=== PATIENT | female | born 1965 | race Caucasian/White ===

== ENCOUNTER → 2016-11-19 | Outpatient (REF) | payer OTHER | LOC: M SFHCPLAZ 10:52 | PROVIDERS: ATTEND Nurse Practitioner Family | DX: E03.9 Hypothyroidism, unspecified (principal); F41.9 Anxiety disorder, unspecified; Z13.220 Encounter for screening for lipoid disorders ==

== ENCOUNTER → 2017-01-11 | Outpatient (REF) | payer OTHER ==
[2017-01-11 20:15] LABS: BASO % 0.5 % (0.0-1.0); EOS # 0.2 K/mm3 (0.0-0.50); EOS % 3.7 % (0.0-3.0); LARGE UNSTAINED CELL # 0.1 K/mm3 (0.0-0.4); LARGE UNSTAINED CELL % 1.8 % (0.0-4.0); LYMPH # 1.4 K/mm3 (1.5-4.5); LYMPH % 25.7 % (24.0-44.0); MEAN CORPUSCULAR HEMOGLOBIN 32.1 pg (27.0-33.0); MEAN CORPUSCULAR HGB CONC 34.1 g/dl (32.0-36.5); MEAN CORPUSCULAR VOLUME 94.3 fl (80.0-96.0); MONO # 0.3 K/mm3 (0.0-0.8); MONO % 5.8 % (0.0-5.0); NEUTROPHILS # 3.1 K/mm3 (1.8-7.7); NEUTROPHILS % 62.5 % (36.0-66.0); PLATELET COUNT, AUTOMATED 184 k/mm3 (150-450); RED CELL DISTRIBUTION WIDTH 12.8 % (11.5-14.5); WHITE BLOOD COUNT 4.9 K/mm3 (4.0-10.0)
[2017-01-11 20:51] LABS: ALBUMIN 3.7 GM/DL (3.2-5.2); ALBUMIN/GLOBULIN RATIO 1.32 (1.00-1.93); ALKALINE PHOSPHATASE 69 U/L (45-117); ALT/SGPT 20 U/L (12-78); ANION GAP 6 MEQ/L (8-16); AST/SGOT 11 U/L (15-37); BILIRUBIN,TOTAL 0.5 MG/DL (0.2-1.0); BLOOD UREA NITROGEN 12 MG/DL (7-18); CALCIUM LEVEL 8.6 MG/DL (8.5-10.1); CARBON DIOXIDE LEVEL 27 MEQ/L (21-32); CHLORIDE LEVEL 109 MEQ/L (98-107); CHOLESTEROL LEVEL 187 MG/DL (<200); CREATININE FOR GFR 0.73 MG/DL (0.55-1.02); FREE T4 0.92 NG/DL (0.76-1.46); GLOMERULAR FILTRATION RATE > 60.0 (>58); GLUCOSE, FASTING 95 MG/DL (70-105); POTASSIUM SERUM 4.3 MEQ/L (3.5-5.1); SODIUM LEVEL 142 MEQ/L (136-145); TOTAL PROTEIN 6.5 GM/DL (6.4-8.2); TRIGLYCERIDES LEVEL 148 MG/DL (<150)
== END ==
LOC: M SFHCPLAZ 09:09
PROVIDERS: ATTEND Nurse Practitioner Family
DX: E03.9 Hypothyroidism, unspecified (principal); F41.9 Anxiety disorder, unspecified; Z13.220 Encounter for screening for lipoid disorders

== ENCOUNTER → 2017-03-19 | Outpatient (REF) | payer OTHER ==
[~2017-03-19] MED LIST: ACYC200C8 PO; ESCI20TA PO; IBUP80TA PO; LEVO50TA5 PO; MELO15TA4 PO
== END ==
LOC: M SFHCPLAZ 09:28
PROVIDERS: ATTEND Family Medicine
DX: Z12.4 Encounter for screening for malignant neoplasm of cervix (principal)

== ENCOUNTER → 2017-03-25 | Outpatient (CLI) | payer OTHER ==
--- NOTE | 2017-03-27 12:18 | REP ---
DIGITAL DIAGNOSTIC BILATERAL MAMMOGRAPHY WITH CAD AND FOCUSED RIGHT BREAST SONOGRAPHY: HISTORY: Right breast mass, right breast pain. The patient reports diffuse swelling and heaviness in the right breast and relates that her symptoms are similar to an episode of mastitis she had after a needle biopsy 3 years ago. Comparison mammograms have been retrieved from [facility] dated August 13, 2016, July 18, 2015, and July 04, 2014. MAMMOGRAPHIC FINDINGS: There is diffuse stromal thickening and diffuse skin thickening visible on the right breast today. Left breast is unchanged and somewhat nodular. No spiculation is seen on either side. No microcalcifications are observed. There is a needle biopsy marker clip at approximate 12-o'clock position in the right breast. Normal-appearing lymph nodes are seen bilaterally. SONOGRAPHIC FINDINGS: The retroareolar region of the right breast is scanned and the right breast scanned from 3 -o'clock position to 9-o'clock position. There is a cluster of cysts approximately 1.8 cm from the nipple and some dilated ducts are seen. No mass or acoustic shadowing is observed. No suspicious sonographic finding. IMPRESSION: Diffuse stromal thickening and diffuse skin thickening in the right breast as a change from prior mammography. Findings compatible with inflammatory mastitis. Inflammatory carcinoma could have this appearance as well. Follow-up imaging after antibiotic therapy is recommended. BIRADS category 0 incomplete breast imaging. Repeat diagnostic right breast mammography and ultrasound suggestive in 6-8 weeks after antibiotic therapy. BI-RADS/ACR category 0 mammogram, incomplete. Additional imaging and/or prior images are needed before a final assessment can be assigned. These findings were discussed by telephone on the day of the exam with the referring provider ARNOLDO Reyes. This mammogram was interpreted with the aid of an FDA-approved computer-aided detection system. The patient states she/he had a clinical breast exam in March 16, 2017 The patient letter being requested is M0. Signed by Raudel Rdz MD 03/27/2017 02:38 P
== END ==
LOC: M RAD 12:18
PROVIDERS: ATTEND Nurse Practitioner Family
DX: N63 Unspecified lump in breast (principal); N64.4 Mastodynia
CPT/HCPCS: 76642; G0204

== ENCOUNTER → 2017-04-17 | Outpatient (CLI) | payer OTHER ==
--- NOTE | 2017-04-17 17:23 | REP ---
DIAGNOSTIC MAMMOGRAM RIGHT BREAST WITH A RIGHT BREAST ULTRASOUND: Diagnostic mammogram right breast performed in the MLO and CC projections and compared to multiple prior exams, the most recent of which is 03/25/2017. That study showed diffuse stromal and skin thickening most consistent with inflammatory change. Current study shows that these findings have essentially resolved. The breast is similar in appearance to the prior study of 08/13/2016. Moderate fibroglandular tissue is unchanged in its pattern with no mass or clustered microcalcifications identified. Real-time sonographic evaluation of the right breast is performed and compared to prior study of 03/25/2017. Multiple dilated ducts are again seen in the retroareolar region. Some of these dilated ducts contain internal low level echoes. Septated cyst at 8-o'clock is again seen, 1.8 x 1.0 x 1.3 cm. IMPRESSION: ACR 2 benign. Resolution of previously noted inflammatory changes with no suspicious mass mammographically or sonographically. Recommend followup mammogram in one year. BI-RADS/ACR category 2 mammogram. Benign finding(s). Routine annual screening mammography (for women over age 40). This mammogram was interpreted with the aid of an FDA-approved computer-aided detection system. The patient states she/he had a clinical breast exam in February 2017. The patient letter being requested is M2. Signed by Mao Montelongo MD 04/17/2017 05:45 P
== END ==
LOC: M RAD 13:09
PROVIDERS: ATTEND Nurse Practitioner Family
DX: N61.0 Mastitis without abscess (principal); R92.8 Other abnormal and inconclusive findings on diagnostic imaging of breast
CPT/HCPCS: 76642; G0206

== ENCOUNTER 2017-05-20 12:38 | Day surgery (SDC) | payer OTHER ==
[~2017-05-20] VITALS: Ht 162.6 cm; Wt 92.1 kg
[2017-05-20] MEDS ORDERED: NS 1,000 ML IV ONE (13:30)
[2017-05-20] MEDS ORDERED: LIDOCAINE 2% INJ 100 MG/5 ML SDV (FOR ANES.) As Ordered ONE (14:00)
[2017-05-20] MEDS ORDERED: PROPOFOL 200 MG/20 ML VIAL As Ordered ONE ×3 (14:00→15:27)
--- NOTE | 2017-05-20 15:37 | ROOR ---
Patient Name: Melissa Barajas Procedure Date: 05/20/2017 3:00 PM Date of : 1965 Age: 52 Room: [facility] Gender: Female Note Status: Finalized Procedure: Colonoscopy Indications: Screening for colorectal malignant neoplasm Providers: Joe Velazquez MD Referring MD: Irene Elizabeth NP Requesting Provider: Medicines: Monitored Anesthesia Care Complications: No immediate complications. Procedure: Pre-Anesthesia Assessment: - Prior to the procedure, a History and Physical was performed, and patient medications and allergies were reviewed. The patient is competent. The risks and benefits of the procedure and the sedation options and risks were discussed with the patient. All questions were answered and informed consent was obtained. Patient identification and proposed procedure were verified by the physician, the nurse and the advertising copy writer in the procedure room. Mental Status Examination: alert and oriented. Airway Examination: normal oropharyngeal airway and neck mobility. Respiratory Examination: clear to auscultation. CV Examination: normal. Prophylactic Antibiotics: The patient does not require prophylactic antibiotics. Prior Anticoagulants: The patient has taken no previous anticoagulant or antiplatelet agents. ASA Grade Assessment: II - A patient with mild systemic disease. After reviewing the risks and benefits, the patient was deemed in satisfactory condition to undergo the procedure. The anesthesia plan was to use monitored anesthesia care (MAC). Immediately prior to administration of medications, the patient was re-assessed for adequacy to receive sedatives. The heart rate, respiratory rate, oxygen saturations, blood pressure, adequacy of pulmonary ventilation, and response to care were monitored throughout the procedure. The physical status of the patient was re-assessed after the procedure. The Colonoscope was introduced through the anus and advanced to the terminal ileum, with identification of the appendiceal orifice and IC valve. The colonoscopy was performed without difficulty. The patient tolerated the procedure well. The quality of the bowel preparation was good. The terminal ileum, ileocecal valve, appendiceal orifice, and rectum were photographed. The quality of the bowel preparation was good. The terminal ileum, ileocecal valve, appendiceal orifice, and rectum were photographed. Scope insertion time was 3 minutes. Scope withdrawal time was 10 minutes. Findings: The perianal and digital rectal examinations were normal. The terminal ileum appeared normal. A few sessile polyps were found in the recto-sigmoid colon. The polyps were 2 to 3 mm in size. These polyps were removed with a cold biopsy forceps. Resection and retrieval were complete. Verification of patient identification for the specimen was done by the physician and nurse using the patient's name, date and medical record number. Estimated blood loss was minimal. The retroflexed view of the distal rectum and anal verge was normal and showed no anal or rectal abnormalities. Impression: - The examined portion of the ileum was normal. - A few 2 to 3 mm polyps at the recto-sigmoid colon, removed with a cold biopsy forceps. Resected and retrieved. Recommendation: - Patient has a contact number available for emergencies. The signs and symptoms of potential delayed complications were discussed with the patient. Return to normal activities tomorrow. Written discharge instructions were provided to the patient. - Resume previous diet. - Continue present medications. - Await pathology results. - Repeat colonoscopy in 5-10 years for surveillance based on pathology results. - Telephone GI clinic for pathology results in 1 week. - Return to GI clinic in 5 years. - Return to primary care physician. Joe Velazquez MD Joe Velazquez MD 05/20/2017 3:36:53 PM This report has been signed electronically. Number of Addenda: 0 Note Initiated On: 05/20/2017 3:00 PM Estimated Blood Loss: Estimated blood loss was minimal.
[2017-05-20 16:00] VITALS: BP 140/84
== END 2017-05-20 16:41 | disposition home or self-care (01) ==
LOC: M OPP 12:38 → EDSTATUS 13:45 → M OPP 16:41
PROVIDERS: ATTEND Internal Medicine Gastroenterology
DX: Z12.11 Encounter for screening for malignant neoplasm of colon (principal); Z63.5 Disruption of family by separation and divorce; E05.90 Thyrotoxicosis, unspecified without thyrotoxic crisis or storm; F32.9 Major depressive disorder, single episode, unspecified; F41.9 Anxiety disorder, unspecified; Z79.899 Other long term (current) drug therapy

== ENCOUNTER → 2017-10-24 | Outpatient (CLI) | payer OTHER, MEDICAID, SELFPAY | LOC: M RAD 09:37 | DX: Z12.31 Encounter for screening mammogram for malignant neoplasm of breast (principal); Z79.3 Long term (current) use of hormonal contraceptives | CPT/HCPCS: 77067 ==

== ENCOUNTER → 2017-10-24 | Outpatient (REF) | payer OTHER ==
[2017-10-24 12:09] LABS: BASO % 0.5 % (0.0-1.0); EOS # 0.1 10^3/uL (0.0-0.50); EOS % 2.2 % (0.0-3.0); HEMATOCRIT 44.4 % (36.0-47.0); HEMOGLOBIN 14.8 g/dl (12.0-15.5); IMMATURE GRANULOCYTE % 0.5 % (0-3.0); LYMPH # 1.5 10^3/uL (1.5-4.5); LYMPH % 23.5 % (24.0-44.0); MEAN CORPUSCULAR HEMOGLOBIN 30.6 pg (27.0-33.0); MEAN CORPUSCULAR HGB CONC 33.3 g/dl (32.0-36.5); MEAN CORPUSCULAR VOLUME 91.7 fl (80.0-96.0); MONO # 0.6 10^3/uL (0.0-0.8); MONO % 9.2 % (0.0-5.0); NEUTROPHILS # 4.1 10^3/uL (1.8-7.7); NEUTROPHILS % 64.1 % (36.0-66.0); PLATELET COUNT, AUTOMATED 208 10^3/uL (150-450); RED BLOOD COUNT 4.84 10^6/uL (4.00-5.40); RED CELL DISTRIBUTION WIDTH 12.8 % (11.5-14.5); WHITE BLOOD COUNT 6.4 10^3/uL (4.0-10.0)
[2017-10-24 12:38] LABS: ALBUMIN 3.8 GM/DL (3.2-5.2); ALBUMIN/GLOBULIN RATIO 1.23 (1.00-1.93); ALKALINE PHOSPHATASE 77 U/L (45-117); ALT/SGPT 18 U/L (12-78); ANION GAP 6 MEQ/L (8-16); AST/SGOT 9 U/L (7-37); BILIRUBIN,TOTAL 0.5 MG/DL (0.2-1.0); BLOOD UREA NITROGEN 17 MG/DL (7-18); CALCIUM LEVEL 8.7 MG/DL (8.5-10.1); CARBON DIOXIDE LEVEL 27 MEQ/L (21-32); CHLORIDE LEVEL 110 MEQ/L (98-107); CHOLESTEROL LEVEL 169 MG/DL (<200); CHOLESTEROL RISK RATIO 4.225 (<5); CREATININE FOR GFR 0.73 MG/DL (0.55-1.30); FREE T4 1.04 NG/DL (0.76-1.46); GLOMERULAR FILTRATION RATE > 60.0 (>51); GLUCOSE, FASTING 93 MG/DL (70-100); HDL CHOLESTEROL 40 MG/DL (>40); LDL CHOLESTEROL 104.8 MG/DL (<100); NON-HDL-C 129 MG/DL; POTASSIUM SERUM 4.3 MEQ/L (3.5-5.1); SODIUM LEVEL 143 MEQ/L (136-145); TOTAL PROTEIN 6.9 GM/DL (6.4-8.2); TRIGLYCERIDES LEVEL 121 MG/DL (<150)
== END ==
LOC: M SFHCLERA 08:53
DX: E03.9 Hypothyroidism, unspecified (principal); F41.9 Anxiety disorder, unspecified; Z13.220 Encounter for screening for lipoid disorders

== ENCOUNTER → 2018-05-06 | Outpatient (REF) | payer OTHER ==
[2018-05-06 12:12] LABS: FREE T4 1.05 NG/DL (0.76-1.46)
== END ==
LOC: M SFHCPLAZ 07:39
DX: E03.9 Hypothyroidism, unspecified (principal)
CPT/HCPCS: 84443

== ENCOUNTER → 2018-05-27 | Outpatient (CLI) | payer OTHER | LOC: M RAD 12:43 | DX: Z12.31 Encounter for screening mammogram for malignant neoplasm of breast (principal) | CPT/HCPCS: 77065 ==

== ENCOUNTER → 2019-02-12 | Outpatient (CLI) | payer MEDICAID, OTHER ==
[~2019-02-12] MED LIST changes: +MELO15TA28 PO; -MELO15TA4 PO
[2019-02-12 12:22] LABS: HEMATOCRIT 43.6 % (36.0-47.0); HEMOGLOBIN 14.2 g/dl (12.0-15.5); MEAN CORPUSCULAR HEMOGLOBIN 30.3 pg (27.0-33.0); MEAN CORPUSCULAR HGB CONC 32.6 g/dl (32.0-36.5); PLATELET COUNT, AUTOMATED 201 10^3/uL (150-450); RED BLOOD COUNT 4.69 10^6/uL (4.00-5.40); WHITE BLOOD COUNT 7.8 10^3/uL (4.0-10.0)
[2019-02-12 13:35] LABS: ALT/SGPT 21 U/L (12-78); BILIRUBIN,TOTAL 0.6 MG/DL (0.2-1.0); BLOOD UREA NITROGEN 17 MG/DL (7-18); CALCIUM LEVEL 9.5 MG/DL (8.5-10.1); CARBON DIOXIDE LEVEL 28 MEQ/L (21-32); CHLORIDE LEVEL 108 MEQ/L (98-107); CHOLESTEROL LEVEL 173 MG/DL (<200); CHOLESTEROL RISK RATIO 3.604 (<5); CREATININE FOR GFR 0.79 MG/DL (0.55-1.30); FREE T4 1.27 NG/DL (0.76-1.46); GLOMERULAR FILTRATION RATE > 60.0 (>51); GLUCOSE, FASTING 86 MG/DL (70-100); HDL CHOLESTEROL 48 MG/DL (>40); LDL CHOLESTEROL 97 MG/DL (<100); NON-HDL-C 125 MG/DL; POTASSIUM SERUM 4.3 MEQ/L (3.5-5.1); SODIUM LEVEL 144 MEQ/L (136-145); TOTAL PROTEIN 6.9 GM/DL (6.4-8.2); TRIGLYCERIDES LEVEL 138 MG/DL (<150)
--- NOTE | 2019-02-12 14:02 | REPMRS ---
Patient History The patient states she had a clinical breast exam in October 2018. Family history of prostate cancer at age 60 in father, prostate cancer at age 40 in brother, prostate cancer at age 40 in brother. Took hormonal contraceptives for 5 years. Digital Mammo Screening Bilat: February 12, 2019 - Exam #: [id number] Bilateral CC and MLO view(s) were taken. Technologist: Elizabeth Bianchi, Technologist Prior study comparison: May 27, 2018, left breast digital mammo diagnostic unilateral performed at [facility]. October 24, 2017, bilateral digital mammo screening bilat performed at [facility]. March 25, 2017, digital mammo diagnostic bilateral performed at [facility]. FINDINGS: There are scattered fibroglandular densities. There is a needle biopsy marker clip noted in the right breast subareolar zone. The stromal thickening observed in the right breast in 2017 has resolved. There has been no change in the appearance of the mammogram from the prior studies. There is a mild amount of scattered fibroglandular density which is fairly symmetric. There is no interval development of dominant mass, architectural distortion, or grouped microcalcification suggestive of malignancy. 3-D tomosynthesis shows no additional findings. Assessment: BI-RADS/ACR category 2 mammogram. Benign Findings. Recommendation Routine screening mammogram of both breasts in 1 year (for women over age 40). This patient's Lifetime Breast Cancer Risk is estimated at 12.0 %. This mammogram was interpreted with the aid of an FDA-approved computer-aided dectection system. Electronically Signed By: Kamaljit Rdz MD 02/12/19 [id number]
--- NOTE | 2019-02-25 11:42 | REP ---
Lumbar spine five views: There are no comparisons. Vertebral body heights, interspacing alignment are normal. There is no spondylolysis. There is no spondylolisthesis. There is mild facet osteoarthritis at the lower lumbar levels. The facets are otherwise unremarkable. The pedicles and sacroiliac articulations are. Impression: Mild facet osteoarthritis of the lower lumbar levels. Electronically Signed by Mao Hanks MD 02/12/2019 01:02 P
== END ==
LOC: M RAD 11:16
PROVIDERS: ATTEND Physician Assistant
DX: E03.9 Hypothyroidism, unspecified (principal); Z13.220 Encounter for screening for lipoid disorders; M54.5 Low back pain; Z12.31 Encounter for screening mammogram for malignant neoplasm of breast; Z92.0 Personal history of contraception

== ENCOUNTER → 2019-07-06 | Outpatient (REF) | payer MEDICAID ==
[2019-07-06 12:13] LABS: HEMATOCRIT 45.7 % (36.0-47.0); HEMOGLOBIN 14.5 g/dl (12.0-15.5); MEAN CORPUSCULAR HEMOGLOBIN 29.8 pg (27.0-33.0); MEAN CORPUSCULAR HGB CONC 31.7 g/dl (32.0-36.5); MEAN CORPUSCULAR VOLUME 93.8 fl (80.0-96.0); PLATELET COUNT, AUTOMATED 175 10^3/uL (150-450); RED BLOOD COUNT 4.87 10^6/uL (4.00-5.40); WHITE BLOOD COUNT 5.9 10^3/uL (4.0-10.0)
[2019-07-06 12:40] LABS: ALBUMIN 3.5 GM/DL (3.2-5.2); ALT/SGPT 21 U/L (12-78); BILIRUBIN,TOTAL 0.6 MG/DL (0.2-1.0); BLOOD UREA NITROGEN 15 MG/DL (7-18); CALCIUM LEVEL 8.7 MG/DL (8.5-10.1); CARBON DIOXIDE LEVEL 27 MEQ/L (21-32); CHLORIDE LEVEL 107 MEQ/L (98-107); CHOLESTEROL LEVEL 175 MG/DL (<200); CHOLESTEROL RISK RATIO 4.487 (<5); CREATININE FOR GFR 0.82 MG/DL (0.55-1.30); FREE T4 1.05 NG/DL (0.76-1.46); GLOMERULAR FILTRATION RATE > 60.0 (>51); GLUCOSE, FASTING 91 MG/DL (70-100); HDL CHOLESTEROL 39 MG/DL (>40); LDL CHOLESTEROL 107 MG/DL (<100); NON-HDL-C 136 MG/DL; SODIUM LEVEL 141 MEQ/L (136-145); TOTAL PROTEIN 6.4 GM/DL (6.4-8.2); TRIGLYCERIDES LEVEL 147 MG/DL (<150)
[2019-07-07 08:47] LABS: RPR Non Reactive (Non Reactive)
== END ==
LOC: M SFHCPLAZ 08:14
PROVIDERS: ATTEND Physician Assistant Medical
DX: E03.9 Hypothyroidism, unspecified (principal); Z13.220 Encounter for screening for lipoid disorders

== ENCOUNTER → 2021-01-08 | Outpatient (REF) | payer OTHER ==
[~2021-01-08] MED LIST changes: -ESCI20TA PO; +ESCI20TA16 PO
[2021-01-08 15:20] LABS: BASO # 0.1 10^3/uL (0.0-0.2); BASO % 0.7 % (0.0-1.0); EOS # 0.2 10^3/uL (0.0-0.5); EOS % 2.2 % (0.0-3.0); HEMOGLOBIN 12.9 g/dl (12.0-15.5); LYMPH # 1.8 10^3/uL (1.5-5.0); LYMPH % 24.9 % (24.0-44.0); MEAN CORPUSCULAR HEMOGLOBIN 27.4 pg (27.0-33.0); MEAN CORPUSCULAR HGB CONC 31.5 g/dl (32.0-36.5); MONO # 0.8 10^3/uL (0.0-0.8); MONO % 10.3 % (2.0-8.0); NEUTROPHILS # 4.5 10^3/uL (1.5-8.5); NEUTROPHILS % 61.6 % (36.0-66.0); PLATELET COUNT, AUTOMATED 218 10^3/uL (150-450); RED BLOOD COUNT 4.71 10^6/uL (4.00-5.40); WHITE BLOOD COUNT 7.3 10^3/uL (4.0-10.0)
[2021-01-08 15:42] LABS: HEMOGLOBIN A1c 5.3 %
[2021-01-08 15:54] LABS: ALBUMIN 3.6 GM/DL (3.2-5.2); ALT/SGPT 19 U/L (12-78); BILIRUBIN,TOTAL 0.5 MG/DL (0.2-1.0); BLOOD UREA NITROGEN 14 MG/DL (7-18); CALCIUM LEVEL 8.9 MG/DL (8.5-10.1); CARBON DIOXIDE LEVEL 28 MEQ/L (21-32); CHLORIDE LEVEL 107 MEQ/L (98-107); CHOLESTEROL LEVEL 173 MG/DL (<200); CHOLESTEROL RISK RATIO 3.604 (<5); CREATININE FOR GFR 0.68 MG/DL (0.55-1.30); FREE T4 1.07 NG/DL (0.76-1.46); GLOMERULAR FILTRATION RATE > 60.0 (>51); GLUCOSE, FASTING 92 MG/DL (70-100); HDL CHOLESTEROL 48 MG/DL (>40); LDL CHOLESTEROL 98 MG/DL (<100); NON-HDL-C 125 MG/DL; POTASSIUM SERUM 4.4 MEQ/L (3.5-5.1); SODIUM LEVEL 140 MEQ/L (136-145); TOTAL PROTEIN 6.4 GM/DL (6.4-8.2); TRIGLYCERIDES LEVEL 133 MG/DL (<150)
== END ==
LOC: M PLALAB 12:30
PROVIDERS: ATTEND Physician Assistant Medical
DX: Z00.00 Encounter for general adult medical examination without abnormal findings (principal); E03.9 Hypothyroidism, unspecified; Z68.35 Body mass index [BMI] 35.0-35.9, adult

== ENCOUNTER → 2021-08-06 | Outpatient (REF) | payer OTHER ==
[2021-08-06 17:37] LABS: BASO % 0.4 % (0.0-1.0); EOS # 0.1 10^3/uL (0.0-0.5); EOS % 1.8 % (0.0-3.0); HEMOGLOBIN 14.4 g/dl (12.0-15.5); LYMPH # 1.5 10^3/uL (1.5-5.0); LYMPH % 26.5 % (24.0-44.0); MEAN CORPUSCULAR HEMOGLOBIN 28.3 pg (27.0-33.0); MEAN CORPUSCULAR VOLUME 88.6 fl (80.0-96.0); MONO # 0.5 10^3/uL (0.0-0.8); MONO % 9.5 % (2.0-8.0); NEUTROPHILS # 3.5 10^3/uL (1.5-8.5); NEUTROPHILS % 61.6 % (36.0-66.0); PLATELET COUNT, AUTOMATED 207 10^3/uL (150-450); RED BLOOD COUNT 5.08 10^6/uL (4.00-5.40); WHITE BLOOD COUNT 5.7 10^3/uL (4.0-10.0)
[2021-08-06 17:53] LABS: ALBUMIN 3.7 GM/DL (3.2-5.2); ALT/SGPT 20 U/L (12-78); BILIRUBIN,TOTAL 0.4 MG/DL (0.2-1.0); BLOOD UREA NITROGEN 18 MG/DL (7-18); CALCIUM LEVEL 8.8 MG/DL (8.5-10.1); CARBON DIOXIDE LEVEL 29 MEQ/L (21-32); CHLORIDE LEVEL 108 MEQ/L (98-107); CREATININE FOR GFR 0.88 MG/DL (0.55-1.30); FREE T4 1.28 NG/DL (0.76-1.46); GLOMERULAR FILTRATION RATE > 60.0 (>51); GLUCOSE, FASTING 92 MG/DL (70-100); HEMOGLOBIN A1c 5.1 %; POTASSIUM SERUM 4.5 MEQ/L (3.5-5.1); SODIUM LEVEL 142 MEQ/L (136-145); TOTAL PROTEIN 6.9 GM/DL (6.4-8.2)
== END ==
LOC: M SFHCPLAZ 17:26
PROVIDERS: ATTEND Physician Assistant Medical
DX: I10 Essential (primary) hypertension (principal); Z68.35 Body mass index [BMI] 35.0-35.9, adult; E03.9 Hypothyroidism, unspecified

== ENCOUNTER → 2021-08-09 | Outpatient (CLI) | payer OTHER | LOC: M RAD 08-06 16:32 | PROVIDERS: ATTEND Physician Assistant | DX: N93.9 Abnormal uterine and vaginal bleeding, unspecified (principal) ==

== ENCOUNTER → 2021-09-25 | Outpatient (CLI) | payer OTHER | LOC: M WHC 14:02 | PROVIDERS: ATTEND Physician Assistant Medical | DX: Z12.31 Encounter for screening mammogram for malignant neoplasm of breast (principal) ==

== ENCOUNTER → 2021-10-10 | Outpatient (CLI) | payer OTHER | LOC: M WHC 14:00 | PROVIDERS: ATTEND Physician Assistant Medical | DX: R92.8 Other abnormal and inconclusive findings on diagnostic imaging of breast (principal) | CPT/HCPCS: 77065; G0279 ==

== ENCOUNTER → 2021-10-23 | Outpatient (CLI) | payer OTHER | LOC: M WHC 13:02 | PROVIDERS: ATTEND Physician Assistant | DX: N83.202 Unspecified ovarian cyst, left side (principal); D25.1 Intramural leiomyoma of uterus ==

== ENCOUNTER → 2021-12-12 | Outpatient (CLI) | payer OTHER ==
[2021-12-12 11:10] LABS: BASO % 0.3 % (0.0-1.0); EOS # 0.1 10^3/uL (0.0-0.5); EOS % 1.6 % (0.0-3.0); HEMOGLOBIN 14.7 g/dl (12.0-15.5); LYMPH # 1.5 10^3/uL (1.5-5.0); LYMPH % 22.4 % (24.0-44.0); MEAN CORPUSCULAR HEMOGLOBIN 30.6 pg (27.0-33.0); MEAN CORPUSCULAR HGB CONC 32.7 g/dl (32.0-36.5); MEAN CORPUSCULAR VOLUME 93.6 fl (80.0-96.0); MONO # 0.6 10^3/uL (0.0-0.8); MONO % 9.2 % (2.0-8.0); NEUTROPHILS # 4.5 10^3/uL (1.5-8.5); NEUTROPHILS % 66.2 % (36.0-66.0); PLATELET COUNT, AUTOMATED 206 10^3/uL (150-450); RED BLOOD COUNT 4.81 10^6/uL (4.00-5.40); WHITE BLOOD COUNT 6.8 10^3/uL (4.0-10.0)
[2021-12-12 11:22] LABS: INR 0.9; PROTHROMBIN TIME 12.5 SECONDS (12.7-14.5)
[2021-12-12 11:23] LABS: PARTIAL THROMBOPLASTIN TIME 26.9 SECONDS (25.9-37.0)
[2021-12-12 11:42] LABS: FOLLICLE STIMULATING HORMONE 1.6 mIU/mL; FREE T4 1.22 NG/DL (0.76-1.46); LUTEINIZING HORMONE 0.5 mIU/mL; THYROID STIMULATING HORMONE 1.57 uIU/ML (0.358-3.740)
== END ==
LOC: M PLALAB 10:12
PROVIDERS: ATTEND Physician Assistant Medical
DX: N92.0 Excessive and frequent menstruation with regular cycle (principal)

== ENCOUNTER → 2022-03-04 | Outpatient (CLI) | payer OTHER ==
[~2022-03-04] MED LIST changes: +APRITAB PO; +BCP PO; +CARV6.25 PO; +LEXA1TAB2 PO; +MIRE1IUD IU; +SYNT100T PO
== END ==
LOC: M LABSMTC 11:27
PROVIDERS: ATTEND Anesthesiology
DX: Z01.818 Encounter for other preprocedural examination (principal); Z11.52 Encounter for screening for COVID-19

== ENCOUNTER 2022-03-06 06:53 | Day surgery (SDC) | payer OTHER ==
[~2022-03-06] VITALS: Ht 162.6 cm; Wt 96.6 kg
[2022-03-06] MEDS ORDERED: LR 1,000 ML IV SCH ×3 (07:15→08:20)
[2022-03-06] MEDS ORDERED: propofoL 200 MG/20 ML VIAL As Ordered ONE (07:47)
[2022-03-06] MEDS ORDERED: KETOROLAC 60MG 2ML VIAL As Ordered ONE (07:47)
[2022-03-06] MEDS ORDERED: ONDANSETRON 4MG 2ML VIAL As Ordered ONE (07:47)
[2022-03-06] MEDS ORDERED: LIDOCAINE 2% 100MG/5ML SDV (FOR ANES.) As Ordered ONE (07:47)
[2022-03-06] MEDS ORDERED: dexameTHASONE 4 MG/ML 1ML VIAL (J1100 PER 1MG) As Ordered ONE (07:47)
[2022-03-06] MEDS ORDERED: MIDAZOLAM INJ 2MG/2ML VIAL (J2250 PER 1MG) As Ordered ONE (07:50)
[2022-03-06] MEDS ORDERED: fentaNYL 100 MCG/2 ML INJECTION As Ordered ONE (07:50)
[2022-03-06 08:07] LABS: HEMATOCRIT 42.3 % (36.0-47.0); HEMOGLOBIN 13.6 g/dl (12.0-15.5); MEAN CORPUSCULAR HGB CONC 32.2 g/dl (32.0-36.5); MEAN CORPUSCULAR VOLUME 93.2 fl (80.0-96.0); PLATELET COUNT, AUTOMATED 222 10^3/uL (150-450); RED BLOOD COUNT 4.54 10^6/uL (4.00-5.40); WHITE BLOOD COUNT 6.3 10^3/uL (4.0-10.0)
[2022-03-06] MEDS ORDERED: oxyCODONE 5MG TAB PO PRN (08:20)
[2022-03-06] MEDS ORDERED: METOCLOPRAMIDE INJ 10MG/2ML VIAL (J2765 PER 1) IV PRN (08:20)
[2022-03-06] MEDS ORDERED: ONDANSETRON 4MG 2ML VIAL IV PRN (08:20)
[2022-03-06] MEDS ORDERED: fentaNYL 100 MCG/2 ML INJECTION IV PRN (08:20)
[2022-03-06 08:23] LABS: BLOOD UREA NITROGEN 14 MG/DL (7-18); CALCIUM LEVEL 8.5 MG/DL (8.5-10.1); CARBON DIOXIDE LEVEL 27 MEQ/L (21-32); CHLORIDE LEVEL 109 MEQ/L (98-107); CREATININE FOR GFR 0.84 MG/DL (0.55-1.30); GLOMERULAR FILTRATION RATE > 60.0 (>51); GLUCOSE, FASTING 100 MG/DL (70-100); POTASSIUM SERUM 4.2 MEQ/L (3.5-5.1); SODIUM LEVEL 141 MEQ/L (136-145)
[2022-03-06 10:41] VITALS: BP 172/81
== END 2022-03-06 10:45 | disposition home or self-care (01) ==
LOC: M SDC 06:53
PROVIDERS: ATTEND Obstetrics & Gynecology
DX: N84.0 Polyp of corpus uteri (principal); I10 Essential (primary) hypertension; E07.9 Disorder of thyroid, unspecified
CPT/HCPCS: 36415; 58563; 80048; 81025; 85027; 86850; 86900; 86901; 88305; 93005; J1100; J1885; J2250; J2405; J3010

== ENCOUNTER → 2022-10-04 | Outpatient (CLI) | payer OTHER | LOC: M WHC 07:37 | PROVIDERS: ATTEND Physician Assistant | DX: Z12.31 Encounter for screening mammogram for malignant neoplasm of breast (principal) ==

== ENCOUNTER → 2022-10-04 | Outpatient (CLI) | payer OTHER ==
[2022-10-04 13:36] LABS: BASO % 0.7 % (0.0-1.0); EOS # 0.1 10^3/uL (0.0-0.5); EOS % 2.3 % (0.0-3.0); HEMATOCRIT 43.1 % (36.0-47.0); HEMOGLOBIN 13.1 g/dl (12.0-15.5); LYMPH # 1.2 10^3/uL (1.5-5.0); MEAN CORPUSCULAR HEMOGLOBIN 26.7 pg (27.0-33.0); MEAN CORPUSCULAR HGB CONC 30.4 g/dl (32.0-36.5); MONO # 0.6 10^3/uL (0.0-0.8); NEUTROPHILS # 3.6 10^3/uL (1.5-8.5); NEUTROPHILS % 64.6 % (36.0-66.0); PLATELET COUNT, AUTOMATED 191 10^3/uL (150-450); WHITE BLOOD COUNT 5.6 10^3/uL (4.0-10.0)
[2022-10-04 14:09] LABS: FREE T4 0.94 NG/DL (0.89-1.76)
[2022-10-04 14:10] LABS: ALBUMIN 3.7 G/DL (3.2-5.2); ALKALINE PHOSPHATASE 62 U/L (46-116); ALT/SGPT 15 U/L (7.0-40); AST/SGOT 13 U/L (<34); BILIRUBIN,TOTAL 0.5 MG/DL (0.3-1.2); BLOOD UREA NITROGEN 18 MG/DL (9-23); CALCIUM LEVEL 8.8 MG/DL (8.5-10.1); CARBON DIOXIDE LEVEL 29 MMOL/L (20-31); CHLORIDE LEVEL 107 MMOL/L (98-107); CHOLESTEROL LEVEL 160 MG/DL (<200); CREATININE FOR GFR 0.72 MG/DL (0.55-1.30); GLOMERULAR FILTRATION RATE > 60.0 (>51); GLUCOSE, FASTING 93 MG/DL (60-100); LDL CHOLESTEROL 86.6 MG/DL (<100); POTASSIUM SERUM 4.6 MMOL/L (3.5-5.1); SODIUM LEVEL 141 MMOL/L (136-145); THYROID STIMULATING HORMONE 3.398 uIU/ML (0.55-4.78); TOTAL PROTEIN 6.2 G/DL (5.7-8.2); TRIGLYCERIDES LEVEL 92 MG/DL (<150)
== END ==
LOC: M PLALAB 08:26
PROVIDERS: ATTEND Physician Assistant
DX: I10 Essential (primary) hypertension (principal)

== ENCOUNTER → 2023-01-24 | Outpatient (CLI) | payer OTHER | LOC: M PLAIMG 12:03 | PROVIDERS: ATTEND Physician Assistant | DX: M79.674 Pain in right toe(s) (principal) ==

== ENCOUNTER → 2023-10-27 | Outpatient (CLI) | payer OTHER ==
[2023-10-27 13:22] LABS: BASO % 0.4 % (0.0-1.0); EOS # 0.1 10^3/uL (0.0-0.5); EOS % 1.7 % (0.0-3.0); HEMATOCRIT 44.7 % (36.0-47.0); LYMPH # 1.1 10^3/uL (1.5-5.0); MEAN CORPUSCULAR HEMOGLOBIN 26.8 pg (27.0-33.0); MEAN CORPUSCULAR HGB CONC 31.3 g/dl (32.0-36.5); MEAN CORPUSCULAR VOLUME 85.6 fl (80.0-96.0); MONO # 0.5 10^3/uL (0.0-0.8); MONO % 9.2 % (2.0-8.0); NEUTROPHILS # 3.5 10^3/uL (1.5-8.5); NEUTROPHILS % 67.5 % (36.0-66.0); PLATELET COUNT, AUTOMATED 226 10^3/uL (150-450); RED BLOOD COUNT 5.22 10^6/uL (4.00-5.40); WHITE BLOOD COUNT 5.2 10^3/uL (4.0-10.0)
[2023-10-27 13:29] LABS: THYROID STIMULATING HORMONE 0.577 uIU/ML (0.55-4.78); TOTAL 25(OH) VITAMIN D 51.6 NG/ML (20.0-100.0)
[2023-10-27 13:31] LABS: FREE T4 1.35 NG/DL (0.89-1.76)
[2023-10-27 13:32] LABS: TOTAL IRON BINDING CAPACITY 379 UG/DL (250-425)
[2023-10-27 13:33] LABS: ALBUMIN 3.9 G/DL (3.2-5.2); ALKALINE PHOSPHATASE 64 U/L (46-116); ALT/SGPT 18 U/L (7.0-40); AST/SGOT 19 U/L (<34); BILIRUBIN,TOTAL 0.5 MG/DL (0.3-1.2); BLOOD UREA NITROGEN 17 MG/DL (9-23); CALCIUM LEVEL 9.8 MG/DL (8.5-10.1); CARBON DIOXIDE LEVEL 30 MMOL/L (20-31); CHLORIDE LEVEL 105 MMOL/L (98-107); CHOLESTEROL LEVEL 150 MG/DL (<200); CHOLESTEROL RISK RATIO 3.06 (<5); CREATININE FOR GFR 0.79 MG/DL (0.55-1.30); GLOMERULAR FILTRATION RATE > 60.0 (>51); GLUCOSE, FASTING 90 MG/DL (60-100); IRON (FE) 58 UG/DL (50-170); PERCENT SATURATION 15.3 % (13.2-45.0); POTASSIUM SERUM 4.4 MMOL/L (3.5-5.1); SODIUM LEVEL 141 MMOL/L (136-145); TOTAL PROTEIN 6.6 G/DL (5.7-8.2); TRIGLYCERIDES LEVEL 100 MG/DL (<150)
[2023-10-27 13:41] LABS: HEMOGLOBIN A1c 5.5 % (4.0-6.0)
== END ==
LOC: M PLALAB 10:46
PROVIDERS: ATTEND Physician Assistant
DX: I10 Essential (primary) hypertension (principal); E03.9 Hypothyroidism, unspecified; E66.09 Other obesity due to excess calories; N93.9 Abnormal uterine and vaginal bleeding, unspecified

== ENCOUNTER → 2023-10-27 | Outpatient (CLI) | payer OTHER | LOC: M WHC 10:41 | PROVIDERS: ATTEND Physician Assistant | DX: Z12.31 Encounter for screening mammogram for malignant neoplasm of breast (principal) ==

== ENCOUNTER 2023-11-14 15:05 | Outpatient (CLI) | payer OTHER ==
[~2023-11-14 15:05] MED LIST changes: +ALBUTEROL SULFATE 2.5MG/0.5ML INH NEB SOLN INH PRN; +EPINEPHrine INJ 1 MG/ML 1ML AMP IM PRN; +diphenhydrAMINE 50MG/ML VIAL IV PRN; +methylPREDNISolone 125MG 2ML VIAL IV PRN
[2023-11-14] MEDS: IRON SUCROSE 300 MG in NS 250 ML OVER 90 MIN. IV ONE (15:20)
[2023-11-14] MEDS ORDERED: NS 1,000 ML IV SCH (15:30)
[2023-11-14 15:34] VITALS: BP 156/86; O2SAT 98
[2023-11-14 17:23] VITALS: BP 132/68; O2SAT 99
== END 2023-11-14 17:30 | disposition home or self-care (01) ==
LOC: M INFU 15:05
PROVIDERS: ATTEND Physician Assistant
DX: E61.1 Iron deficiency (principal)
CPT/HCPCS: 96365; J1756

== ENCOUNTER → 2024-06-19 | Outpatient (CLI) | payer OTHER ==
[~2024-06-19] MED LIST changes: -ALBUTEROL SULFATE 2.5MG/0.5ML INH NEB SOLN INH PRN; -EPINEPHrine INJ 1 MG/ML 1ML AMP IM PRN; -diphenhydrAMINE 50MG/ML VIAL IV PRN; -methylPREDNISolone 125MG 2ML VIAL IV PRN
[2024-06-19 11:40] LABS: HEMATOCRIT 44.4 % (36.0-47.0); HEMOGLOBIN 13.8 g/dl (12.0-15.5); MEAN CORPUSCULAR HEMOGLOBIN 27.1 pg (27.0-33.0); MEAN CORPUSCULAR HGB CONC 31.1 g/dl (32.0-36.5); MEAN CORPUSCULAR VOLUME 87.2 fl (80.0-96.0); PLATELET COUNT, AUTOMATED 197 10^3/uL (150-450); RED BLOOD COUNT 5.09 10^6/uL (4.00-5.40); WHITE BLOOD COUNT 6.4 10^3/uL (4.0-10.0)
[2024-06-19 12:09] LABS: LIPASE 162 U/L (12-53)
[2024-06-19 12:11] LABS: AMYLASE 152 U/L (30-118)
[2024-06-19 12:12] LABS: ALBUMIN 3.4 G/DL (3.2-5.2); ALKALINE PHOSPHATASE 88 U/L (35-104); ALT/SGPT 12 U/L (7.0-40); AST/SGOT < 8 U/L (<34); BILIRUBIN,TOTAL 0.6 MG/DL (0.3-1.2); BLOOD UREA NITROGEN 17 MG/DL (9-23); CALCIUM LEVEL 9.4 MG/DL (8.5-10.1); CARBON DIOXIDE LEVEL 31 MMOL/L (20-31); CHLORIDE LEVEL 106 MMOL/L (98-107); CHOLESTEROL LEVEL 237 MG/DL (<200); CHOLESTEROL RISK RATIO 3.37 (<5); CREATININE FOR GFR 0.85 MG/DL (0.55-1.30); GLOMERULAR FILTRATION RATE > 60.0 (>51); GLUCOSE, FASTING 87 MG/DL (60-100); HDL CHOLESTEROL 70.2 MG/DL (>40); LDL CHOLESTEROL 142.4 MG/DL (<100); NON-HDL-C 166.8 MG/DL; POTASSIUM SERUM 4.3 MMOL/L (3.5-5.1); SODIUM LEVEL 143 MMOL/L (136-145); TOTAL PROTEIN 6.7 G/DL (5.7-8.2); TOTAL T3 93.5 NG/DL (60.0-181.0); TRIGLYCERIDES LEVEL 122 MG/DL (<150)
[2024-06-19 12:13] LABS: THYROID STIMULATING HORMONE 2.863 uIU/ML (0.55-4.78); THYROXINE (T4) 7.2 UG/DL (4.5-10.9)
[2024-06-19 12:25] LABS: HEMOGLOBIN A1c 5.3 % (4.0-6.0)
== END ==
LOC: M LAB 09:58
PROVIDERS: ATTEND Physician Assistant
DX: E66.3 Overweight (principal)

== ENCOUNTER → 2024-06-30 | Outpatient (CLI) | payer OTHER, SELFPAY ==
[2024-06-30 13:57] LABS: HEMATOCRIT 43.8 % (36.0-47.0); HEMOGLOBIN 13.9 g/dl (12.0-15.5); MEAN CORPUSCULAR HEMOGLOBIN 27.3 pg (27.0-33.0); MEAN CORPUSCULAR HGB CONC 31.7 g/dl (32.0-36.5); MEAN CORPUSCULAR VOLUME 85.9 fl (80.0-96.0); PLATELET COUNT, AUTOMATED 192 10^3/uL (150-450); WHITE BLOOD COUNT 5.2 10^3/uL (4.0-10.0)
[2024-06-30 14:22] LABS: LIPASE 37 U/L (12-53)
[2024-06-30 14:23] LABS: ALBUMIN 3.5 G/DL (3.2-5.2); ALKALINE PHOSPHATASE 82 U/L (35-104); ALT/SGPT 16 U/L (7.0-40); AMYLASE 55 U/L (30-118); AST/SGOT 12 U/L (<34); BILIRUBIN,TOTAL 0.8 MG/DL (0.3-1.2); BLOOD UREA NITROGEN 24 MG/DL (9-23); CALCIUM LEVEL 9.8 MG/DL (8.5-10.1); CARBON DIOXIDE LEVEL 30 MMOL/L (20-31); CHLORIDE LEVEL 104 MMOL/L (98-107); CHOLESTEROL LEVEL 237 MG/DL (<200); CHOLESTEROL RISK RATIO 3.27 (<5); CREATININE FOR GFR 0.79 MG/DL (0.55-1.30); GLOMERULAR FILTRATION RATE > 60.0 (>51); GLUCOSE, FASTING 86 MG/DL (60-100); HDL CHOLESTEROL 72.3 MG/DL (>40); LDL CHOLESTEROL 142.7 MG/DL (<100); NON-HDL-C 164.7 MG/DL; POTASSIUM SERUM 3.8 MMOL/L (3.5-5.1); SODIUM LEVEL 138 MMOL/L (136-145); TOTAL PROTEIN 6.6 G/DL (5.7-8.2); TRIGLYCERIDES LEVEL 110 MG/DL (<150)
[2024-06-30 14:25] LABS: THYROID STIMULATING HORMONE 2.092 uIU/ML (0.55-4.78); THYROXINE (T4) 9.7 UG/DL (4.5-10.9); TOTAL T3 93.7 NG/DL (60.0-181.0)
[2024-06-30 14:28] LABS: HEMOGLOBIN A1c 5.3 % (4.0-6.0)
== END ==
LOC: M LAB 12:41
PROVIDERS: ATTEND Physician Assistant
DX: E66.3 Overweight (principal)

== ENCOUNTER → 2024-08-16 | Outpatient (CLI) | payer OTHER ==
[2024-08-16 13:59] LABS: HEMATOCRIT 43.9 % (36.0-47.0); HEMOGLOBIN 13.4 g/dl (12.0-15.5); MEAN CORPUSCULAR HEMOGLOBIN 26.3 pg (27.0-33.0); MEAN CORPUSCULAR HGB CONC 30.5 g/dl (32.0-36.5); MEAN CORPUSCULAR VOLUME 86.1 fl (80.0-96.0); PLATELET COUNT, AUTOMATED 201 10^3/uL (150-450); WHITE BLOOD COUNT 5.4 10^3/uL (4.0-10.0)
[2024-08-16 14:34] LABS: FERRITIN 5.3 NG/ML (7.3-270.7)
[2024-08-16 14:35] LABS: CHOLESTEROL RISK RATIO 3.66 (<5); HDL CHOLESTEROL 61.6 MG/DL (>40); NON-HDL-C 164.4 MG/DL; PERCENT SATURATION 15.1 % (13.2-45.0)
== END ==
LOC: M PLALAB 09:47
PROVIDERS: ATTEND Nurse Practitioner Family
DX: D50.9 Iron deficiency anemia, unspecified (principal)

== ENCOUNTER 2024-09-03 06:09 | Observation (INO) | payer OTHER ==
[~2024-09-03] VITALS: Ht 162.6 cm; Wt 89.6 kg
[2024-09-03] VITALS (8 sets, daily range): BP systolic 132–156; BP diastolic 68–80; TEMP 97.2–98.6; O2SAT 95–98
[~2024-09-03 06:09] MED LIST changes: +GABA-1172 PO; +LEVO100T5 PO; +LISI5TAB11 PO; +SEMA0.5P SQ; +VENL150C43 PO
[2024-09-03] MEDS ORDERED: INSULIN LISPRO (NovoLOG) PER UNIT SC PRN (06:25)
[2024-09-03] MEDS ORDERED: GLUCAGON INJ 1MG VIAL SC PRN (06:25)
[2024-09-03] MEDS ORDERED: LR 1,000 ML IV SCH (06:25)
[2024-09-03] MEDS ORDERED: DEXTROSE 50% 50ML SYRINGE IV PRN (06:25)
[2024-09-03] MEDS ORDERED: GLUCOSE 4 GM CHEW PO PRN (06:25)
[2024-09-03 06:56] LABS: HEMATOCRIT 42.5 % (36.0-47.0); HEMOGLOBIN 13.5 g/dl (12.0-15.5); MEAN CORPUSCULAR HEMOGLOBIN 27.4 pg (27.0-33.0); MEAN CORPUSCULAR HGB CONC 31.8 g/dl (32.0-36.5); MEAN CORPUSCULAR VOLUME 86.2 fl (80.0-96.0); PLATELET COUNT, AUTOMATED 184 10^3/uL (150-450); RED BLOOD COUNT 4.93 10^6/uL (4.00-5.40); WHITE BLOOD COUNT 4.4 10^3/uL (4.0-10.0)
[2024-09-03] MEDS ORDERED: fentaNYL 100 MCG/2 ML INJECTION As Ordered ONE (07:12)
[2024-09-03] MEDS ORDERED: MIDAZOLAM INJ 2MG/2ML VIAL As Ordered ONE (07:12)
[2024-09-03] MEDS ORDERED: dexmedeTOMIDine (4MCG/ML)200MCG/50ML BTL (PRECEDEX) As Ordered ONE (07:13)
[2024-09-03] MEDS ORDERED: ROCURONIUM BROMIDE 50MG/5ML VIAL As Ordered ONE (07:13)
[2024-09-03] MEDS ORDERED: LIDOCAINE 2% 100MG/5ML SDV (FOR ANES.) As Ordered ONE (07:13)
[2024-09-03] MEDS ORDERED: ONDANSETRON 4MG 2ML VIAL As Ordered ONE (07:13)
[2024-09-03] MEDS ORDERED: propofoL 200 MG/20 ML VIAL As Ordered ONE (07:13)
[2024-09-03] MEDS ORDERED: ACETAMINOPHEN 1000MG/100ML IV BAG As Ordered ONE (07:13)
[2024-09-03 07:36] LABS: HCG, SERUM QUALITATIVE NEGATIVE (NEGATIVE)
[2024-09-03] MEDS: ceFAZolin SOD 2 GM in IV 1 EA IV ONE (07:52)
[2024-09-03] MEDS ORDERED: SUGAMMADEX SODIUM 500 MG/5 ML VIAL (BRIDION) As Ordered ONE (08:08)
[2024-09-03] MEDS ORDERED: KETOROLAC 60MG 2ML VIAL As Ordered ONE (08:08)
[2024-09-03] MEDS: METHYLENE BLUE 0.5% (5MG/ML) 10 ML AMP (PROVAYBLUE) As Ordered ONE (08:38)
[2024-09-03] MEDS: VENLAFAXINE **XR** 75MG CAPSULE PO SCH (09:00)
[2024-09-03] MEDS: lisinopriL 5 MG TAB PO SCH (09:00)
[2024-09-03] MEDS ORDERED: ePHEDrine SULFATE 25 MG/5 ML(5MG/ML) SYRINGE As Ordered ONE (09:21)
[2024-09-03] MEDS ORDERED: PERCOCET 5MG/325MG TAB PO PRN (09:25)
[2024-09-03] MEDS ORDERED: MORPHINE 4 MG/ML 1ML VIAL IV PRN (09:25)
[2024-09-03] MEDS ORDERED: fentaNYL 100 MCG/2 ML INJECTION IV PRN (09:25)
[2024-09-03] MEDS: LR 1,000 ML IV SCH ×2 (09:25→11:16)
[2024-09-03] MEDS ORDERED: ONDANSETRON 4MG 2ML VIAL IV PRN ×2 (09:25)
[2024-09-03] MEDS ORDERED: COLA100C5 PO (09:30)
[2024-09-03] MEDS ORDERED: PERCOCET PO (09:30)
[2024-09-03] MEDS ORDERED: IBUP80TA PO (09:30)
[2024-09-03] MEDS: oxyCODONE 5MG TAB PO PRN (10:02)
[2024-09-03] MEDS: HYDROMORPHONE HCL 0.5 MG/ 0.5 ML SYRINGE IV PRN (10:03)
[2024-09-03] MEDS ORDERED: HOME MED LIST COMPLETE! XX SCH (13:50)
[2024-09-03] MEDS: KETOROLAC 30 MG/ML 1ML VIAL IV SCH (15:18)
[2024-09-03] MEDS: DOCUSATE SODIUM 100MG CAPSULE PO SCH (20:18)
[2024-09-04] VITALS: BP 130/71; TEMP 96.9; O2SAT 99
[2024-09-04 04:00] VITALS: BP 138/67; TEMP 98.4; O2SAT 96
[2024-09-04] MEDS: LEVOTHYROXINE 100MCG TABLET (0.1MG) PO SCH (05:53)
[2024-09-04 08:30] VITALS: BP 137/66; TEMP 97.8; O2SAT 96
[2024-09-04 08:33] VITALS: BP 137/66
[2024-09-04] MEDS: PERCOCET 5MG/325MG TAB PO PRN (08:35)
[2024-09-04] MEDS ORDERED: IBUPROFEN 800 MG TAB PO SCH (17:00)
== END 2024-09-04 11:10 | disposition home or self-care (01) ==
LOC: M SDC 06:09 → M RR INP 06:10 → M PED 10:50
PROVIDERS: ADMIT Obstetrics & Gynecology; ATTEND Obstetrics & Gynecology
DX: D25.9 Leiomyoma of uterus, unspecified (principal); R10.2 Pelvic and perineal pain; N73.6 Female pelvic peritoneal adhesions (postinfective); N93.9 Abnormal uterine and vaginal bleeding, unspecified; Z87.891 Personal history of nicotine dependence; Z79.899 Other long term (current) drug therapy
CPT/HCPCS: 36415; 58571; 81025; 84703; 85027; 86850; 86900; 86901; 88307; 93005; 96361; 96374; 96376; J0131; J0665; J0690; J1100; J1171; J1885; J2250; J2405; J3010; Q9968; S2900

== ENCOUNTER → 2024-11-27 | Outpatient (CLI) | payer OTHER ==
[~2024-11-27] MED LIST changes: +COLA100C5 PO; +PERCOCET PO
[2024-11-27 09:41] LABS: HEMATOCRIT 47.6 % (36.0-47.0); HEMOGLOBIN 15.4 g/dl (12.0-15.5); LYMPH # 1.2 10^3/uL (1.5-5.0); LYMPH % 22.3 % (24.0-44.0); MEAN CORPUSCULAR HEMOGLOBIN 29.1 pg (27.0-33.0); MEAN CORPUSCULAR HGB CONC 32.4 g/dl (32.0-36.5); MEAN CORPUSCULAR VOLUME 89.8 fl (80.0-96.0); MONO # 0.5 10^3/uL (0.0-0.8); MONO % 8.6 % (2.0-8.0); NEUTROPHILS # 3.6 10^3/uL (1.5-8.5); NEUTROPHILS % 68.7 % (36.0-66.0); PLATELET COUNT, AUTOMATED 202 10^3/uL (150-450); WHITE BLOOD COUNT 5.2 10^3/uL (4.0-10.0)
[2024-11-27 09:46] LABS: ERYTHROCYTE SEDIMENTATION RATE 10 mm/hr (0-30)
[2024-11-27 10:11] LABS: URIC ACID 6.6 MG/DL (3.1-7.8)
[2024-11-27 10:13] LABS: C REACTIVE PROTEIN QUANTITATIV < 0.50 MG/DL (<1.0)
[2024-11-27 10:14] LABS: ALBUMIN 3.9 G/DL (3.2-5.2); ALKALINE PHOSPHATASE 89 U/L (35-104); ALT/SGPT 14 U/L (7.0-40); AST/SGOT 11 U/L (<34); BILIRUBIN,TOTAL 0.4 MG/DL (0.3-1.2); BLOOD UREA NITROGEN 19 MG/DL (9-23); CALCIUM LEVEL 9.5 MG/DL (8.5-10.1); CARBON DIOXIDE LEVEL 29 MMOL/L (20-31); CHLORIDE LEVEL 108 MMOL/L (98-107); CHOLESTEROL LEVEL 205 MG/DL (<200); CHOLESTEROL RISK RATIO 3.56 (<5); CREATININE FOR GFR 0.74 MG/DL (0.55-1.30); GLOMERULAR FILTRATION RATE > 90.0 (>51); GLUCOSE, FASTING 90 MG/DL (60-100); HDL CHOLESTEROL 57.5 MG/DL (>40); IRON (FE) 44 UG/DL (50-170); LDL CHOLESTEROL 132.7 MG/DL (<100); NON-HDL-C 147.5 MG/DL; PERCENT SATURATION 12.4 % (13.2-45.0); POTASSIUM SERUM 3.8 MMOL/L (3.5-5.1); SODIUM LEVEL 147 MMOL/L (136-145); TOTAL IRON BINDING CAPACITY 356 UG/DL (250-425); TOTAL PROTEIN 6.8 G/DL (5.7-8.2); TRIGLYCERIDES LEVEL 74 MG/DL (<150)
[2024-11-27 10:15] LABS: FERRITIN 14.4 NG/ML (7.3-270.7)
[2024-11-27 10:21] LABS: RHEUMATOID FACTOR QUANT 7.9 IU/ML (<14)
== END ==
LOC: M LAB 09:01
PROVIDERS: ATTEND Nurse Practitioner Family
DX: D50.9 Iron deficiency anemia, unspecified (principal); R53.83 Other fatigue

== ENCOUNTER → 2025-02-21 | Outpatient (CLI) | payer OTHER ==
[~2025-02-21] MED LIST changes: +PROHANCE 279.3MG/ML 15ML VIAL ONE; +PROHANCE 279.3MG/ML 5ML VIAL ONE
== END ==
LOC: M PLAIMG 09:17
PROVIDERS: ATTEND Nurse Practitioner Family
DX: R22.30 Localized swelling, mass and lump, unspecified upper limb (principal)

== ENCOUNTER → 2025-04-21 | Outpatient (CLI) | payer OTHER ==
[~2025-04-21] MED LIST changes: +ACYC200C10 PO; -ACYC200C8 PO; -PROHANCE 279.3MG/ML 15ML VIAL ONE; -PROHANCE 279.3MG/ML 5ML VIAL ONE
== END ==
LOC: M RAD 17:03
PROVIDERS: ATTEND Nurse Practitioner Family
DX: M25.562 Pain in left knee (principal); M17.12 Unilateral primary osteoarthritis, left knee

== ENCOUNTER 2025-06-06 06:13 | Day surgery (SDC) | payer OTHER ==
[~2025-06-06] VITALS: Ht 162.6 cm; Wt 86.2 kg
[~2025-06-06 06:13] MED LIST changes: +ESTR1TAB PO
[2025-06-06] MEDS ORDERED: LR 1,000 ML IV SCH ×3 (06:40→11:20)
[2025-06-06 07:06] LABS: PLATELET COUNT, AUTOMATED 166 10^3/uL (150-450)
[2025-06-06] MEDS ORDERED: LIDOCAINE 2% 100 MG/5 ML SDV (FOR ANES.) As Ordered ONE (07:39)
[2025-06-06] MEDS ORDERED: MIDAZOLAM INJ 2 MG/2 ML VIAL As Ordered ONE (07:39)
[2025-06-06] MEDS: PANTOPRAZOLE 40MG VIAL IV ONE (08:17)
[2025-06-06] MEDS ORDERED: SUCCINYLCHOLINE 100MG/5ML SYRINGE As Ordered ONE (08:19)
[2025-06-06] MEDS ORDERED: ROCURONIUM BROMIDE 50MG/5ML VIAL As Ordered ONE (08:19)
[2025-06-06] MEDS: ceFAZolin SOD 2 GM IV ONCE IV ONE (08:29)
[2025-06-06] MEDS ORDERED: dexAMETHasone 4 MG/ML 1 ML VIAL As Ordered ONE (08:32)
[2025-06-06] MEDS ORDERED: ONDANSETRON 4MG/2ML VIAL As Ordered ONE (08:32)
[2025-06-06] MEDS ORDERED: ACETAMINOPHEN 1000MG/100ML IV BAG As Ordered ONE (08:34)
[2025-06-06] MEDS: VASOPRESSIN INJ 20UNITS/ML 1ML VIAL As Ordered ONE (08:44)
[2025-06-06] MEDS ORDERED: KETOROLAC 30 MG/ML 1 ML VIAL As Ordered ONE (08:52)
[2025-06-06] MEDS ORDERED: PHENYLephrine 500MCG 5ML (100MCG/ML) SYRINGE As Ordered ONE (09:04)
[2025-06-06] MEDS: LIDOCAINE W/EPINEPHrine 1% 20 ML VIAL As Ordered ONE (09:08)
[2025-06-06] MEDS: ESTROGENS VAGINAL CREAM 30 GM As Ordered ONE (09:16)
[2025-06-06] MEDS ORDERED: HYDROMORPHONE HCL 0.5 MG/0.5 ML SYRINGE IV PRN (09:20)
[2025-06-06] MEDS ORDERED: ONDANSETRON 4MG/2ML VIAL IV PRN ×2 (09:20→11:25)
[2025-06-06] MEDS ORDERED: DIBUCAINE 1% OINTMENT 30 GM TOP PRN (11:20)
[2025-06-06] MEDS: PERCOCET 5MG/325MG TAB PO PRN (12:31)
[2025-06-06 13:53] VITALS: BP 142/74; TEMP 97.9; O2SAT 98
== END 2025-06-06 14:39 | disposition home or self-care (01) ==
LOC: M SDC 06:13
PROVIDERS: ATTEND Obstetrics & Gynecology
DX: N81.6 Rectocele (principal); N39.41 Urge incontinence; I10 Essential (primary) hypertension; E03.9 Hypothyroidism, unspecified; E78.00 Pure hypercholesterolemia, unspecified; Z79.899 Other long term (current) drug therapy; Z79.890 Hormone replacement therapy; Z90.710 Acquired absence of both cervix and uterus
CPT/HCPCS: 36415; 57250; 85027; 86850; 86900; 86901; 88302; J0131; J0330; J0688; J1100; J1885; J2250; J2371; J2405; J2470; J2598; J3010